=== PATIENT | male | born 1980 | race African-American/Black ===

== ENCOUNTER 2021-05-22 22:29 | Emergency (ER) | payer MEDICAID ==
[~2021-05-22] VITALS: Ht 167.6 cm; Wt 118.0 kg
[2021-05-23] MEDS: BACITRACIN ZINC OINT UDPKT TOP ONE
[2021-05-23] MEDS: TETANUS, DIPHTHERIA, PERTUSSIS VAC/PF 0.5ML (>7YR OLD) IM ONE
[2021-05-23] MEDS: LIDOCAINE HCL/PF 1% 10 MG/ML 5ML VIAL INFIL ONE
[2021-05-23] MEDS ORDERED: CEPH500C2 MT (01:19)
[2021-05-23] MEDS ORDERED: IBUP-2029 MT (01:19)
[2021-05-23 02:05] VITALS: BP 145/79
== END 2021-05-23 02:07 | disposition home or self-care (01) ==
LOC: ER 22:29
DX: S61.211A Laceration without foreign body of left index finger without damage to nail, initial encounter (principal); W26.8XXA Contact with other sharp object(s), not elsewhere classified, initial encounter; Y93.89 Activity, other specified; Y92.89 Other specified places as the place of occurrence of the external cause; Y99.8 Other external cause status
CPT/HCPCS: 12001; 90471; 90715; 99283; A4217; J3490; Z7610